=== PATIENT | male | born 1995 | race American Indian/Alaskan Native ===

== ENCOUNTER 2016-12-23 23:05 | Emergency (ER) | payer OTHER ==
[2016-12-24] MEDS ORDERED: TYLENOL ONE (00:21)
[2016-12-24] MEDS ORDERED: TYLENOL PO ONE (00:26)
[2016-12-24 01:06] LABS: Basophils % (Auto) 0.4 % (0.0-1.8); Eosinophils % (Auto) 1.8 % (0.0-4.3); Hematocrit 46.4 % (35.5-45.6); Hemoglobin 15.1 gm/dl (11.8-15.2); Mean Corpuscular HGB Conc 33 % (32-34); Mean Corpuscular Hemoglobin 27 pg (28-32); Mean Corpuscular Volume 83 fl (84-94); Platelet Count 218 K/mm3 (140-440); Red Blood Count 5.58 M/mm3 (3.65-5.03); Red Cell Distribution Width 13.7 % (13.2-15.2)
[2016-12-24 01:22] LABS: Anion Gap 19 mmol/L; BUN/Creatinine Ratio 7.69; Blood Urea Nitrogen 10 mg/dL (9-20); Calcium 9.2 mg/dL (8.4-10.2); Carbon Dioxide 24 mmol/L (22-30); Chloride 100.4 mmol/L (98-107); Glucose 104 mg/dL (75-100); Potassium 4.1 mmol/L (3.6-5.0); Sodium 139 mmol/L (137-145)
[2016-12-24 01:42] LABS: Erythrocyte Sedimentation Rate 1 mm/Hr (0-20)
[2016-12-24] MEDS ORDERED: NACL 0.9% 1000 ML 1,000 ML IV ONE (04:28)
[2016-12-24] MEDS ORDERED: TORADOL IVP ONE (05:00)
[2016-12-24] MEDS ORDERED: REGLAN IV ONE (05:00)
[2016-12-24] MEDS ORDERED: BENADRYL IV ONE (05:00)
--- NOTE | 2016-12-24 06:26 | Emergency Department Report ---
ED General Adult HPI - General Chief complaint: Headache Stated complaint: HEADACHE/NECK PAIN Time Seen by Provider: 12/24/16 06:23 Source: patient Mode of arrival: Ambulatory Limitations: No Limitations - History of Present Illness Initial comments: Patient states that he has been previously diagnosed with migraine headache. He was referred to a neurologist in the [employer] but never followed up. He has intermittent headaches which are not uncommon. He is requesting a return to work note stating that his headache is completely gone. He was treated with a variety of non-opioid medications prior to my arrival. He states that his headache pattern could involve any part of his head and generally involves some muscle spasm of his neck. He does not describe photophobia nor change in vision nor fever chills nausea or vomiting. He states he is ready to leave at the time of my encounter. -: Gradual, year(s) Location: head Radiation: non-radiation Quality: aching Consistency: intermittent Improves with: none Worsens with: none Associated Symptoms: denies other symptoms - Related Data Previous Rx's Medication Instructions Recorded Last Taken Type Butalb/Acetaminophen/Caffeine 1 cap PO Q6HR PRN #10 cap 12/24/16 Unknown Rx [Fioricet 50-300-40 mg CAP] Allergies Allergy/AdvReac Type Severity Reaction Status Date / Time No Known Allergies Allergy Verified 12/24/16 00:24 ED Review of Systems ROS: Stated complaint: HEADACHE/NECK PAIN Other details as noted in HPI Constitutional: denies: chills, fever Eyes: denies: eye pain, eye discharge, vision change ENT: denies: ear pain, throat pain Respiratory: denies: cough, shortness of breath, wheezing Cardiovascular: denies: chest pain, palpitations Endocrine: no symptoms reported Gastrointestinal: denies: abdominal pain, nausea, diarrhea Genitourinary: denies: urgency, dysuria Musculoskeletal: myalgia (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 There is no neck stiffness referred.). denies: back pain, joint swelling, arthralgia Skin: denies: rash, lesions Neurological: headache. denies: weakness, paresthesias Psychiatric: denies: anxiety, depression Hematological/Lymphatic: denies: easy bleeding, easy bruising ED Past Medical Hx - Past Medical History Previous Medical History?: Yes Additional medical history: Headaches - Surgical History Past Surgical History?: Yes Additional Surgical History: Hernia - Social History Smoking Status: Former Smoker Substance Use Type: None - Medications Home Medications: Home Medications Medication Instructions Recorded Confirmed Last Taken Type Butalb/Acetaminophen/Caffeine 1 cap PO Q6HR PRN #10 cap 12/24/16 Unknown Rx [Fioricet 50-300-40 mg CAP] ED Physical Exam - General Limitations: No Limitations General appearance: alert, in no apparent distress - Head Head exam: Present: atraumatic, normocephalic - Eye Eye exam: Present: normal appearance, PERRL, EOMI, scleral icterus - ENT ENT exam: Present: normal exam, mucous membranes moist - Neck Neck exam: Present: normal inspection. Absent: tenderness, meningismus - Respiratory Respiratory exam: Present: normal lung sounds bilaterally. Absent: respiratory distress - Cardiovascular Cardiovascular Exam: Present: regular rate, normal rhythm. Absent: systolic murmur, diastolic murmur, rubs, gallop - GI/Abdominal GI/Abdominal exam: Present: soft, normal bowel sounds. Absent: distended, tenderness, guarding, rebound, rigid - Rectal Rectal exam: Present: deferred - Extremities Exam Extremities exam: Present: normal inspection - Back Exam Back exam: Present: normal inspection - Neurological Exam Neurological exam: Present: alert, oriented X3, CN II-XII intact, normal gait, other (cerebellar testing was normal. Visual hernandes were equal by confrontation.). Absent: motor sensory deficit - Psychiatric Psychiatric exam: Present: normal affect, normal mood - Skin Skin exam: Present: warm, dry, intact, normal color. Absent: rash ED Course Vital Signs 12/24/16 12/24/16 00:24 07:18 Temperature 98.5 F 97.7 F Pulse Rate 74 79 Respiratory 16 16 Rate Blood Pressure 116/65 105/53 [Right] O2 Sat by Pulse 98 98 Oximetry - Reevaluation(s) Reevaluation #1: Headache resolved 12/24/16 07:38 ED Medical Decision Making - Lab Data Result diagrams: 12/24/16 00:39 12/24/16 00:39 Laboratory Results - last 24 hr 12/24/16 12/24/16 12/24/16 00:39 00:39 00:47 WBC 11.0 RBC 5.58 H Hgb 15.1 Hct 46.4 H MCV 83 L MCH 27 L MCHC 33 RDW 13.7 Plt Count 218 Lymph % (Auto) 35.1 H Graham % (Auto) 7.5 H Eos % (Auto) 1.8 Baso % (Auto) 0.4 Lymph # 3.9 Graham # 0.8 Eos # 0.2 Baso # 0.0 Seg Neutrophils % 55.2 Seg Neutrophils # 6.1 ESR 1 Sodium 139 Potassium 4.1 Chloride 100.4 Carbon Dioxide 24 Anion Gap 19 BUN 10 Creatinine 1.3 Estimated GFR > 60 BUN/Creatinine Ratio 7.69 Glucose 104 H Calcium 9.2 C-Reactive Protein 0.00 Critical care attestation.: If time is entered above; I have spent that time in minutes in the direct care of this critically ill patient, excluding procedure time. ED Disposition Clinical Impression: Headache Qualifiers: Headache type: unspecified Headache chronicity pattern: chronic headache Intractability: not intractable Qualified Code(s): R51 - Headache Disposition: DC-01 TO HOME OR SELFCARE Is pt being admited?: No Does the pt Need Aspirin: No Condition: Stable Instructions: Acute Headache (ED) Additional Instructions: Follow[facility]up with the referral neurologist or [facility]. Rx as needed for headache. Return any acute change or worsening symptoms. Prescriptions: Butalb/Acetaminophen/Caffeine [Fioricet 50-300-40 mg CAP] 1 cap PO Q6HR PRN #10 cap PRN Reason: headache Referrals: PRIMARY CARE, [Primary Care Provider] - 3-5 Days AMOR GARCIA MD [Staff Physician] - 3-5 Days Forms: Work/School Release Form(ED) Time of Disposition: 07:39
[2016-12-24 07:19] VITALS: BP 105/53
== END 2016-12-24 07:44 | disposition home or self-care (01) ==
LOC: ED 23:05
DX: R51 Headache (principal); Z87.891 Personal history of nicotine dependence
CPT/HCPCS: 36415; 80048; 85025; 85652; 86140; 96361; 96374; 96375; 99283; J1200; J1885; J2765; J7030